=== PATIENT | female | born 2005 | race Caucasian/White ===

== ENCOUNTER 2024-03-14 10:27 | Outpatient (CLI) | payer OTHER, MEDICAID, SELFPAY ==
--- NOTE | ~2024-03-14 | US_ITS ---
EXAMINATION: US OB follow up DATE: 03/14/2024 11:40 INDICATION: Assess growth during third trimester of TECHNIQUE: Real-time ultrasound of the pelvis was performed. The interpreting radiologist was not pre sent for the study. COMPARISON: None. FINDINGS: There is a single living fetus in vertex presentation. The placenta is anterior and not low-lying. F etal heart rate is 132 beats per minute (bpm). The amniotic fluid index is 16.1 cm, which is normal. The following biometric data were obtained: BPD: 8.3 cm -> 33 weeks 4 days Head circumference: 30.2 cm -> 33 weeks 4 days Abdominal circumference: 27.5 cm -> 31 weeks 4 days Femur length: 6.0 cm -> 31 weeks 3 days These measurements are concordant. Head circumference to abdominal circumference ratio: 1.10 (normal range 0.96-1.12). Estimated weight: 1861 g (+/-) 279 g or 4 lbs. 2 oz. (+/-) 10 oz. IMPRESSION: 1. Single living fetus in vertex presentation with heart rate of 133 bpm. 2. Normal amniotic fluid index of 16.1 cm. 3. Estimated weight is 32nd percentile by Hadlock criteria when 05/08/2024 is used as the estimat ed date of delivery (SUSAN). Please correlate with clinical information or earlier ultrasounds for most accurate SUSAN. Reviewed, dictated and finalized at location B. SHIP CLERK IMPRESSION: 1. Single living fetus in vertex presentation with heart rate of 133 bpm. 2. Normal amniotic fluid index of 16.1 cm. 3. Estimated weight is 32nd percentile by Hadlock criteria when 05/08/2024 is used as the estimated date of delivery (SUSAN). Please correlate with clinical information or earlier ultrasounds for most accurate SUSAN.
== END 2024-03-14 10:28 | disposition home or self-care (01) ==
PROVIDERS: Visit Provider Obstetrics & Gynecology Gynecology
DX: Z36.2 Encounter for other antenatal screening follow-up (principal); Z3A.00 Weeks of gestation of pregnancy not specified
CPT/HCPCS: 76816

== ENCOUNTER 2024-04-03 05:07 | Observation (INO) | payer OTHER, MEDICAID, SELFPAY ==
[2024-04-03] VITALS (12 sets, daily range): BP systolic 85–123; BP diastolic 57–64; PULSE 72–84; O2SAT 97–100; BMI 35.4
--- NOTE | 2024-04-03 05:07 | PC.NURSE ---
Pt arrives to unit with back and abdominal pain.
--- NOTE | 2024-04-03 05:30 | OBADM ---
This patient, Tanya Ying, admitted to the OB room OB Post 117 for observation. Patient/family oriented to hospital policies and general routines including ID bracelet, bed and alarms, visiting hours, pain management, procedures, bathroom and other care routines, personal items, smoking policy, room service/diet, and visiting hours. Patient/Family are encouraged to report perceived risks to care and to ask questions if they do not understand what they are told or what they should do.
[2024-04-03 05:53] LABS: Add Urine Microscopic? YES; Appearance Urine Cloudy (Clear); Bacteria Urine Rare /hpf; Bilirubin Urine Negative (Negative); Blood Urine 2+ (Negative); Color Urine Yellow (Yellow); Glucose Urine UA Negative (Negative); Ketones Urine Negative (Negative); Leukocyte Esterase Ur Trace LEU/UL (Negative); Nitrate Urine Negative (Negative); Non Pathogenic Casts 0-2; Protein Urine 1+ mg/dL (Negative); RBC Urine 21-50 /hpf (0-2); Specific Grav Ur 1.019 (1.001-1.035); Squamous Epithelial Cell Urine Moderate /hpf (Few); Urobilinogen Urine 0.2 mg/dL (<2.0)
--- NOTE | 2024-04-03 06:11 | PC.NURSE ---
Called Maxx Garay CNM, update on pt, back and right abdominal pain 7 out of 10, labs, and tracing. Orders received to administer 10 mg Flexeril, perform SVE, position changes, and discharge pt if pain is relieved with instructions to keep next scheduled appointment and when to return to the unit.
[2024-04-03] MEDS: CYCLOBENZAPRINE HCL 10 MG TABLET PO (06:24)
--- NOTE | 2024-04-03 07:40 | PC.NURSE ---
Maxx Garay CNM notfied of patient's pain better after taking the flexeril and SVE. Okay to discharge
--- NOTE | 2024-04-15 08:05 | PM.OBTRLD ---
OB - Triage/Final Diagnosis Visit Information Date of evaluation: 04/03/24 Reason for evaluation: threatened labor (low back pain) Comments/Additional reasons for admission: I have assessed the risk for this patient, Tanya Ying, and determined that she would benefit from observation care. Evaluation Laboratory results: Laboratory Tests 04/03/24 05:24 Urine Color Yellow Urine Appearance Cloudy H Urine pH 6.0 Ur Specific [place] 1.019 Urine Protein 1+ H Urine Glucose (UA) Negative Urine Ketones Negative Ur Blood (Man) 2+ H Urine Nitrate Negative Urine Bilirubin Negative Urine Urobilinogen 0.2 Leukocyte Esterase Rfl Trace H Urine RBC 21-50 H Urine WBC 11-20 H Ur Squamous Epith Cells Moderate Urine Bacteria Rare Urine Casts 0-2 Comments: Pt evaluated on unit by RN. Plan of care discussed with CNM. FHTs reassuring. VSS. No evidence of active labor or ROM.
== END 2024-04-03 07:53 | disposition home or self-care (01) ==
PROVIDERS: Advanced Practice Midwife; Admitting Provider Obstetrics & Gynecology Gynecology; Visit Provider Obstetrics & Gynecology Gynecology
DX: O47.03 False labor before 37 completed weeks of gestation, third trimester (principal); Z3A.35 35 weeks gestation of pregnancy
CPT/HCPCS: 81001; 87086; A9270; G0378; G0379

== ENCOUNTER 2024-04-08 20:45 | Observation (INO) | payer OTHER, SELFPAY ==
--- NOTE | 2024-04-08 20:45 | PC.NURSE ---
Pt arrives to unit with abdominal and back pain.
[2024-04-08 21:05] VITALS: BP 117/68; PULSE 84
[2024-04-08 21:22] LABS: Add Urine Microscopic? YES; Appearance Urine Cloudy (Clear); Bacteria Urine None Seen /hpf; Bilirubin Urine Negative (Negative); Blood Urine 2+ (Negative); Color Urine Yellow (Yellow); Glucose Urine UA Negative (Negative); Ketones Urine Negative (Negative); Leukocyte Esterase Ur Negative LEU/UL (Negative); Mucus Urine Present /lpf; Need Manual Microscopic Reviewed; Nitrate Urine Negative (Negative); Protein Urine 3+ mg/dL (Negative); RBC Urine 51-100 /hpf (0-2); Specific Grav Ur 1.024 (1.001-1.035); Squamous Epithelial Cell Urine Moderate /hpf (Few); Urobilinogen Urine 0.2 mg/dL (<2.0); pH Urine 6.5 (5.0-9.0)
[2024-04-08 21:30] VITALS: BP 113/67; PULSE 82
--- NOTE | 2024-04-08 21:52 | PC.NURSE ---
Called Dr. Cadena, update on pt, abdominal and back pain, blood pressure, tracing, and labs. Orders received to discharge pt with instructions to hydrate, use a heating pad, keep next scheduled appointment, and when to return to the unit.
[2024-04-08 22:01] VITALS: BMI 35.5
--- NOTE | 2024-04-08 22:02 | OBADM ---
This patient, Tanya Ying, admitted to the OB room OB Post 113 for observation. Patient/family oriented to hospital policies and general routines including ID bracelet, bed and alarms, visiting hours, pain management, procedures, bathroom and other care routines, personal items, smoking policy, room service/diet, and visiting hours. Patient/Family are encouraged to report perceived risks to care and to ask questions if they do not understand what they are told or what they should do.
--- NOTE | 2024-04-08 22:16 | PC.NURSE ---
Pt discharged with instructions to hydrate, use a heating pad, keep next scheduled appointment, and when to return to the unit, pt verbalizes understanding.
--- NOTE | 2024-05-09 11:14 | P.PNOB_ITS ---
OB - Triage/Final Diagnosis Visit Information Comments/Additional reasons for admission: I have assessed the risk for this patient, Tanya Ying, and determined that she would benefit from observation care. Evaluation Laboratory results: Laboratory Tests 04/08/24 21:10 Urine Color Yellow Urine Appearance Cloudy H Urine pH 6.5 Ur Specific Murray 1.024 Urine Protein 3+ H Urine Glucose (UA) Negative Urine Ketones Negative Ur Blood (Man) 2+ H Urine Nitrate Negative Urine Bilirubin Negative Urine Urobilinogen 0.2 Add Ur Microanalysis Reviewed Leukocyte Esterase Rfl Negative Urine RBC 51-100 H Urine WBC 11-20 H Ur Squamous Epith Cells Moderate Urine Bacteria None seen Urine Casts 3-5 Urine Mucus Present Final Diagnosis (1) Decreased movement: Code(s): O36.8190 - Decreased movements, unspecified trimester, not applicable or unspecified Status: Acute
== END 2024-04-08 22:16 | disposition home or self-care (01) ==
PROVIDERS: Admitting Provider Obstetrics & Gynecology; Visit Provider Obstetrics & Gynecology
DX: O36.8130 Decreased fetal movements, third trimester, not applicable or unspecified (principal); Z3A.35 35 weeks gestation of pregnancy
CPT/HCPCS: 81001; 87086; G0378; G0379

== ENCOUNTER 2024-04-28 15:32 | Observation (INO) | payer OTHER, SELFPAY ==
--- NOTE | 2024-04-28 15:32 | OBADM ---
This patient, Tanya Ying, admitted to the OB room Labor/Delivery/Recovery 106 for observation. Patient/family oriented to hospital policies and general routines including ID bracelet, bed and alarms, visiting hours, pain management, procedures, bathroom and other care routines, personal items, smoking policy, room service/diet, and visiting hours. Patient/Family are encouraged to report perceived risks to care and to ask questions if they do not understand what they are told or what they should do.
[2024-04-28 18:35] VITALS: BMI 37.3
[2024-04-28 18:53] LABS: OBXCEM ROM Plus Negative (Negative)
--- NOTE | 2024-05-01 03:24 | PM.OBTRLD ---
OB - Triage/Final Diagnosis Visit Information Reason for evaluation: threatened labor Comments/Additional reasons for admission: I have assessed the risk for this patient, Tanya Ying, and determined that she would benefit from observation care. Evaluation Laboratory results: Laboratory Tests 04/28/24 16:18 Membranes Rupture Rom plus negative
== END 2024-04-28 18:42 | disposition home or self-care (01) ==
PROVIDERS: Admitting Provider Obstetrics & Gynecology Gynecology; Visit Provider Obstetrics & Gynecology Gynecology
DX: O47.1 False labor at or after 37 completed weeks of gestation (principal); Z3A.38 38 weeks gestation of pregnancy
CPT/HCPCS: 84112; G0378; G0379

== ENCOUNTER 2024-04-30 00:54 | Observation (INO) | payer OTHER, SELFPAY ==
[2024-04-30 03:00] VITALS: BP 117/77; PULSE 71
[2024-04-30 03:30] VITALS: BP 116/70; PULSE 73
--- NOTE | 2024-04-30 03:35 | PM.OBTRLD ---
OB - Triage/Final Diagnosis Visit Information Reason for evaluation: threatened labor Comments/Additional reasons for admission: I have assessed the risk for this patient, Tanya Ying, and determined that she would benefit from observation care. Evaluation Vital signs: Vital Signs - 24 hr 04/30/24 03:00 04/30/24 03:30 Pulse Rate 71 73 Blood Pressure 117/77 116/70
== END 2024-04-30 03:50 | disposition home or self-care (01) ==
PROVIDERS: Admitting Provider Obstetrics & Gynecology Gynecology; Visit Provider Obstetrics & Gynecology Gynecology
DX: O47.1 False labor at or after 37 completed weeks of gestation (principal); Z3A.38 38 weeks gestation of pregnancy
CPT/HCPCS: G0378; G0379

== ENCOUNTER 2024-05-01 07:13 | Inpatient (IN) | payer OTHER, MEDICAID, SELFPAY ==
[2024-05-01] VITALS (115 sets, daily range): BP systolic 79–132; BP diastolic 36–97; PULSE 57–128; RESP 20; TEMP 36.4–37.3; O2SAT 91–100; BMI 43.0
--- NOTE | 2024-05-01 07:51 | WPDOBADMIT ---
Obstetrics - Admit Note Admission Note: record reviewed. No pertinent additions to the history and/or any subsequent changes in the physical findings that are not consistent with the expected course of the were found. Additions to the history and/or subsequent changes in the physical findings follow. Patient returns with contractions but not in labor. Discussed 39 wks so could induce. Patient agreeable. Cervix 3-4/70/-2 AROM with meconium fluid. Will start pitocin. FHTs Cat I.
[2024-05-01 08:23] LABS: Basophils Percent Auto 0.3 % (0.2-1.2); Eosinophils Absolute Auto 0.1 K/mm3 (0-0.3); Eosinophils Percent Auto 1.2 % (0-4.4); Hematocrit 36.7 % (37.0-47.0); Hemoglobin 12.2 g/dL (12.0-15.0); Immature Granulocyte Absolute 0.06 K/mm3 (0.00-0.031); Immature Granulocyte Percent A 0.6 % (0-0.5); Lymphocytes Percent Auto 20.5 % (18.3-44.2); Mean Corpuscular HGB Conc 33.2 g/dl (32-36); Mean Corpuscular Hemoglobin 28.7 pg (26-34); Mean Corpuscular Volume 86.4 fl (80-100); Mean Platelet Volume 9.8 fl (7.4-10.4); Monocytes Absolute Auto 0.9 K/mm3 (0.1-0.6); Monocytes Percent Auto 8.9 % (2.6-8.5); Neutrophils Absolute Auto 6.7 K/mm3 (1.3-6.7); Neutrophils Percent Auto 68.5 % (45.5-73.1); Platelet Count Result 164 k/mm3 (150-375); Red Blood Count 4.25 M/mm3 (4.2-5.4); Red Cell Distribution Width 15.3 % (11.5-14.5); White Blood Count 9.8 K/mm3 (4.5-10.0)
[2024-05-01] MEDS: fentaNYL CITRATE INJ (*CRX) 100 MCG/2 ML VIAL IV PUSH (08:32)
[2024-05-01] MEDS: LACTATED RINGERS 1,000 ML 125 ML IV CONT ×2 (08:32→09:25)
[2024-05-01 08:42] LABS: Rapid Plasma Reagin Non-Reactive (NonReactive)
[2024-05-01 09:07] LABS: HIV 1/2 Ab P24 Ag Result Negative (Negative)
[2024-05-01] MEDS: ONDANSETRON INJ 4 MG/2 ML VIAL IV PUSH (12:48)
[2024-05-01] MEDS: OXYTOCIN 30 UNITS/NS 500 ML 30 UNITS/500 ML BAG IV CONT (15:53)
--- NOTE | 2024-05-01 18:56 | PM.OBPRVD ---
OB - Vaginal Delivery Note Procedure Delivery date: 05/01/24 Events: Other (39 wks for MIL) Induction method: AROM Delivery augmentation: Pitocin Delivery monitor: External FHT and External Uterine Route of delivery: Laceration Description: Periurethral (Bilateral deep) and Perineal - 2nd Degree Delivery repair: vicryl (3-0) Specimen: Yes (placenta) Quantitative Blood Loss (ml): 325 Anesthesia type: Epidural Disposition: Floor Complications: No immediate complications Narrative: not crying and limp so cord quickly cut and infant handed to nursery. Baby Date of : 05[birth year]/24 Gestational Age by Date: 39 Infant gender: Male Weight (pounds): 7 Weight (ounces): 1 presentation: vertex position: Right Occiput Anterior Placenta delivery description: Spontaneous Cord Vessel Description: Around Body (left shoulder) and Around Extremity (Bilateral feet) score one minute: 7 score five minutes: 9
--- NOTE | 2024-05-01 18:59 | P.DS_ITS ---
DS: Admitting Diagnosis Discharge Date 05/03/24 <Sim Cadena MD - Last Filed: 05/03/24 09:14> Admitting Diagnosis IUP 39 wks MIL <Daniela Marcial MD - Last Filed: 05/05/24 08:31> DS: Discharge Diagnosis Discharge Diagnosis (1) (normal spontaneous vaginal delivery): Code(s): O80 - Encounter for full-term uncomplicated delivery <Daniela Marcial MD - Last Filed: 05/05/24 08:31> Status: Acute <Daniela Marcial MD - Last Filed: 05/05/24 08:31> OB - DS: Summary OB Procedures : Ultrasound <Daniela Marcial MD - Last Filed: 05/05/24 08:31> OB Procedures Intrapartum: Spontaneous Vag Delivery <Daniela Marcial MD - Last Filed: 05/05/24 08:31> OB Procedures: : None <Daniela Marcial MD - Last Filed: 05/05/24 08:31> Peripartum Data Infant Delivery Method: Natural Vaginal <Daniela Marcial MD - Last Filed: 05/05/24 08:31> Laceration Description: Periurethral (Bilateral deep) and Perineal - 2nd Degree <Daniela Marcial MD - Last Filed: 05/05/24 08:31> complications: none <Daniela Marcial MD - Last Filed: 05/05/24 08:31> Status at Discharge Functional status at discharge: independent ambulation <Daniela Marcial MD - Last Filed: 05/05/24 08:31> Overall status at discharge: patient is progressing back to baseline <Daniela Marcial MD - Last Filed: 05/05/24 08:31> Time Spent with Patient Time attestation: Total time spent providing and/or coordinating discharge services: <Daniela Marcial MD - Last Filed: 05/05/24 08:31> DS: Data Data Completed and Pending Labs on day of discharge: Labs from last 24 hours 05/01/24 08:10 WBC 9.8 RBC 4.25 Hgb 12.2 Hct 36.7 L MCV 86.4 MCH 28.7 MCHC 33.2 RDW 15.3 H Plt Count 164 MPV 9.8 Immature Gran % (Auto) 0.6 H Neut % (Auto) 68.5 Lymph % (Auto) 20.5 [place] % (Auto) 8.9 H Eos % (Auto) 1.2 Baso % (Auto) 0.3 Lymph # (Auto) 2.00 [place] # (Auto) 0.9 H Eos # (Auto) 0.1 Baso # (Auto) 0.0 Abs Immat Gran (auto) 0.06 H Absolute Neuts (auto) 6.7 Absolute Nucleated RBC 0.000 Nucleated RBC % 0.0 RPR Non-reactive HIV 1&2 Ab/P24 Ag 4thGn Negative Blood Type A Positive Antibody Screen Negative <Daniela Marcial MD - Last Filed: 05/05/24 08:31> Discharge Plan Discharge Attending physician on discharge: Daniela Marcial <Daniela Marcial MD - Last Filed: 05/05/24 08:31> Daniela Marcial <Sim Cadena MD - Last Filed: 05/03/24 09:14> Discharging Clinician: Sim Cadena <Daniela Marcial MD - Last Filed: 05/05/24 08:31> Sim Cadena <Sim Cadena MD - Last Filed: 05/03/24 09:14> Anticipated Discharge Date/Time: 05/03/24 19:00 <Daniela Marcial MD - Last Filed: 05/05/24 08:31> Patient Disposition: Home, Self-Care <Daniela Marcial MD - Last Filed: 05/05/24 08:31> Activity: may shower and pelvic rest <Daniela Marcial MD - Last Filed: 05/05/24 08:31> may shower and pelvic rest <Sim Cadena MD - Last Filed: 05/03/24 09:14> Diet: regular <Daniela Marcial MD - Last Filed: 05/05/24 08:31> regular <Sim Cadena MD - Last Filed: 05/03/24 09:14> Discharge Instructions: Education: Mom and Baby Guide Given to: Mother Follow-Up: Call your delivering provider's office for an appointment to be seen in: 6 Weeks Mom and baby should come to the [facility] for the follow-up appointment. Appointment Date/Time: May 06, 2024 at 11:00 am What to expect at your follow-up visit: Blood Pressure Check Physical Assessment Call [phone] if you are unable to keep your appointment time. BREAST CARE: * Wear a snug supportive bra. * For engorgement discomfort: Breast Feeding: * Apply warm moist washcloths * Express milk as needed to relieve engorgement * Wear loose clothing Bottle Feeding: * May apply ice packs * For sore nipples: * Identify correct latch-on * Apply warm moist washcloths before and after nursing * Air dry nipples after nursing * May apply Lansinoh cream to nipples EPISIOTOMY/PERINEAL CARE: * Until bleeding stops, use your ellie bottle after urinating * Change your pad frequently throughout the day * You may take sitz baths several times a day (fill your bathtub with warm water and soak for 20 minutes.) Do NOT bathe in the water * No tub baths until seen by your physician - You may shower ACTIVITY: * Rest as much as possible. * Do not exercise or lift anything heavier than your baby (such as laundry or other children.) * Avoid stairs or driving as much as possible. * Do not put anything into the vagina. No douching, tampons, or sexual activity until seen by physician. NOTIFY PHYSICIAN IF YOU HAVE ANY QUESTIONS OR IF ANY OF THE FOLLOWING SYMPTOMS OCCUR: * If your episiotomy or incision becomes red, swollen, or more painful than what you have experienced in the hospital. * If your vaginal bleeding becomes foul smelling. * If your vaginal bleeding becomes more heavy than a period or if your bleeding changes from pink to bright red. However, you may pass an occasional walnut- sized clot once or twice for the first week . * If you experience a sharp, shooting pain in you calves. * If you discover a hard, reddened area on your breast or if you experience flu- like symptoms. DIET: * Eat regular, well-balanced meals. * Drink plenty of fluids daily. If , drink to thirst. Call or return if temperature above 100.4? F, increased abdominal pain, increased vaginal bleeding or any new problems. <Daniela Marcial MD - Last Filed: 05/05/24 08:31> Patient Language: Omani <Daniela Marcial MD - Last Filed: 05/05/24 08:31> Stand Alone Forms: General Discharge Information <Daniela Marcial MD - Last Filed: 05/05/24 08:31> Follow-up/Referrals: Daniela Marcial MD [Physician] - 6 Weeks <Daniela Marcial MD - Last Filed: 05/05/24 08:31> Discharge Medications: New ibuprofen 600 mg tablet 600 mg PO Q6H PRN (Reason: cramps) Qty: 30 0RF Continued sertraline 100 mg tablet 100 mg PO Q24H <Daniela Marcial MD - Last Filed: 05/05/24 08:31> Date of admission: 05/01/24 07:13 <Daniela Marcial MD - Last Filed: 05/05/24 08:31> Primary Care Provider: UNKNOWN,DOCTOR <Daniela Marcial MD - Last Filed: 05/05/24 08:31> Admitting Provider: Daniela Marcial <Daniela Marcial MD - Last Filed: 05/05/24 08:31> Attending physician on admission: Daniela Marcial <Daniela Marcial MD - Last Filed: 05/05/24 08:31> Condition: Stable <Daniela Marcial MD - Last Filed: 05/05/24 08:31>
--- NOTE | 2024-05-01 19:09 | LDADM ---
This patient, Tanya Ying, was admitted to Labor/Delivery/Recovery 106 on 05/01/24 at 07:13. Plans for labor, pain management and were discussed with patient. Patient/family oriented to hospital policies and general routines including ID bracelet, bed and alarms, visiting hours, pain management, procedures, bathroom and other care routines, personal items, smoking policy, room service/diet and guest tray routines, security routines, and visiting hours. Patient/Family are encouraged to report perceived risks to care and to ask questions if they do not understand what they are told or what they should do. See OBIX for further documentation.
[2024-05-01] MEDS: OXYTOCIN 30 UNITS/NS 500 ML 30 UNITS/500 ML BAG 125 UNITS IV CONT (19:11)
[2024-05-01] MEDS: WITCH HAZEL 40 PADS 1 PAD TOPICAL (20:50)
[2024-05-01] MEDS: BENZOCAINE 20% AER SPR (*SP) 56 GM CAN 1 SPRAY TOPICAL (20:50)
--- NOTE | 2024-05-01 21:06 | OBPPTRN ---
Patient transferred to post room #280 via wheelchair. Support person present. Oriented to unit, room, information board, rooming in, admission packet and security measures. Patient verbalizes understanding.
[2024-05-01] MEDS: ACETAMINOPHEN 325 MG TABLET 650 MG PO (22:40)
[2024-05-01] MEDS: IBUPROFEN 600 MG TABLET PO (22:40)
[2024-05-01] MEDS: DOCUSATE SODIUM 100 MG CAPSULE PO (22:48)
[2024-05-01] MEDS: SERTRALINE HCL 50 MG TABLET 100 MG PO (22:48)
[2024-05-02 03:00] VITALS: BP 103/68; PULSE 66; RESP 16; TEMP 36.8; O2SAT 98
[2024-05-02 04:32] LABS: Hemoglobin 9.9 g/dL (12.0-15.0)
[2024-05-02] MEDS: DOCUSATE SODIUM 100 MG CAPSULE PO ×2 (07:25→17:18)
[2024-05-02] MEDS: POLYSACCHARIDE IRON COMPLEX 150 MG CAPSULE PO (07:25)
[2024-05-02] MEDS: MULTIVIT/MIN/PREN/FOL AC/IRON TABLET 1 TAB PO (07:25)
[2024-05-02] MEDS: ACETAMINOPHEN 325 MG TABLET 650 MG PO ×3 (07:25→19:22)
--- NOTE | 2024-05-02 07:35 | PC.NURSE ---
Primary RN requested feeding assistance for pt. When speaking with mom, she states that baby hasn't eaten since 0030. Since we are at 7.5 hours, blood sugar checked. It was low at [address] Addison notified and gel and enfamil initiated. Mother not very happy about giving formula but consents if it is medically necessary. Baby unable to suck on bottle and spit out formula. Only 1ml given and mom wanted to stop the formula and try to breastfeed again. Educated that we still need to give formula per the policy. Mom is holding baby but he gives no feeding cues or effort to latch. Patient was given the admission packet. Reported to primary RN. She will try to get baby to take more formula.
--- NOTE | 2024-05-02 08:12 | WPDANLDPN2 ---
Anes-Prog Note L&D Date/Time: 05/02/24 08:12 Neuro status: Neuro function grossly intact. Vital Signs: Last Vital Signs Temp 36.8 C 05/02/24 03:00 Pulse 66 05/02/24 03:00 Resp 16 05/02/24 03:00 BP 103/68 05/02/24 03:00 Pulse Ox 98 05/02/24 03:00 O2 Del Method Room Air 05/01/24 08:00 Pain score (VAS): 0 I/O: Intake & Output 05/01/24 05/02/24 05/02/24 23:59 07:59 15:59 Output Total 625 Balance -625 Patient feedback: Patient satisfied with anesthetic care.
[2024-05-02 08:45] VITALS: BP 104/59; PULSE 75; RESP 16; TEMP 36.6; O2SAT 98
--- NOTE | 2024-05-02 11:05 | PC.NURSE ---
1105- Patient called out for assistance. She was holding baby in a football position and he was dressed in a sleeper. He was sleeping soundly. Suggested we move him to the crib and get him fully undressed to see if that will help him wake up. Mom states that she did that already and he didn't wake up. So she dressed him again and he woke up but fell back asleep. Since mom doesn't want to try this method of waking baby, encouraged her to place baby up and down vertically on her chest skin to skin. She did move him to her chest but didn't undress him and placed him over her shirt. Educated that she should try again in about 30 minutes when he may be in a more awake state. She also states he spit up a lot of the formula he took, but when she showed the wash cloth it only had a small spot of spit up on it. Reminded her that formula digests slower than breastmilk and spit up is normal as infants are adjusting to taking PO feeds. Reported to primary RN. 1200- Back to patient room to see if she was able to breastfeed. Mom states baby latched for 10 minutes and sucked off and on but not consistently the whole time. She was going to the bathroom and then says she will try to feed again. She said the doctor will be here soon to circ baby and that might wake him up . Discussed that infants are often sleepy as they recover from circumcision and the tylenol they get afterwards. If she could get in another good feeding before the circ it would be beneficial. Patient says she will try to feed again. Reported to primary RN.
--- NOTE | 2024-05-02 12:25 | P.PNOB_ITS ---
OB - PN: Subj Subjective Date/time seen: 05/02/24 12:25 Patient comments: no complaints and pain well controlled baby status: doing well OB - PN: Obj Data Labs 05/02/24 03:33 Labs: Laboratory Results - last 24 hr 05/02/24 03:33 Hgb 9.9 L Hct 31.0 L OB - PN A/P Plan day: 1 Plan: routine care and other (Declines control. Recommended at least condoms for 9 months to prevent interval being too close.) Time Spent With Patient Time: Total time spent is greater than 50% in coordination of care (as documented) at patient's floor/unit and/or counseling patient: Exam 2 : Bimanual exam- vagina & uterus: other (Uterus firm, nt @U)
[2024-05-02 12:32] VITALS: BP 102/60; PULSE 78; RESP 16; TEMP 36.6; O2SAT 98
[2024-05-02 19:20] VITALS: BP 121/86; PULSE 80; RESP 18; TEMP 36.7
[2024-05-02] MEDS: IBUPROFEN 600 MG TABLET PO (19:22)
[2024-05-02] MEDS: SERTRALINE HCL 50 MG TABLET 100 MG PO (20:51)
[2024-05-03] MEDS: ACETAMINOPHEN 325 MG TABLET 650 MG PO (04:00)
[2024-05-03] MEDS: IBUPROFEN 600 MG TABLET PO (04:00)
[2024-05-03 08:00] VITALS: BP 108/74; PULSE 68; RESP 16; TEMP 36.1
[2024-05-03] MEDS: MULTIVIT/MIN/PREN/FOL AC/IRON TABLET 1 TAB PO (08:07)
[2024-05-03] MEDS: DOCUSATE SODIUM 100 MG CAPSULE PO (08:07)
[2024-05-03] MEDS: POLYSACCHARIDE IRON COMPLEX 150 MG CAPSULE PO (08:07)
--- NOTE | 2024-05-03 09:12 | P.PNOB_ITS ---
OB - PN: Subj Subjective Date/time seen: 05/03/24 09:12 Narrative: Pain OK. Would like to go home. OB - PN: Obj Data Labs 05/02/24 03:33 OB - PN A/P Plan day: 1 Comments: A: PPD#2, doing well. P: Home to f/u 6 weeks. Exam 2 Psych: Other: AVSS ABD soft, nontender, fundus firm EXT nontender
[2024-05-03] MEDS: SIMETHICONE 80 MG TAB.CHEW PO (10:37)
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
[2024-05-06 10:47] VITALS: BP 117/72; PULSE 79; RESP 18; TEMP 36.5; O2SAT 100
--- OUTSIDE RECORDS SUMMARY | 2024-05-08 04:10 | XMS_ITS ---
Author Organization Unknown Address [address] [place] [phone] Phone Care Team Providers Care Siding Mechanic Name Role Phone CASH CARRION-BOBBY Attending Paul Casillas Primary Unavailable Immunization Immunization Date Status Additional Notes Code Code System MMR 08/08/2004 Completed 03 CVX MMR 11/19/2008 Completed 03 CVX Hep B, adolescent or pediatric 2003 Completed 08 CVX IPV 2003 Completed 10 CVX IPV 2003 Completed 10 CVX IPV 02/12/2004 Completed 10 CVX IPV 11/19/2008 Completed 10 CVX Hib, unspecified formulation 2003 Completed 17 CVX DTaP 2003 Completed 20 CVX DTaP 2003 Completed 20 CVX DTaP 02/12/2004 Completed 20 CVX DTaP 08/08/2004 Completed 20 CVX DTaP 11/19/2008 Completed 20 CVX varicella 08/08/2004 Completed 21 CVX varicella 11/19/2008 Completed 21 CVX Hib-Hep B 2003 Completed 51 CVX Hib-Hep B 08/08/2004 Completed 51 CVX HPV, quadrivalent 08/13/2014 Completed 62 C VX Hep A, ped/adol, 2 dose 08/13/2014 Completed 83 CVX pneumococcal conjugate PCV 7 2003 Completed 100 CVX pneumococcal conjugate PCV 7 2003 Completed 100 CVX pneumococcal conjugate PCV 7 02/12/2004 Completed 100 CVX pneumococcal conjugate PCV 7 08/08/2004 Completed 100 CVX meningococcal MCV4P 08/13/2014 Completed 114 CVX meningococcal MCV4P 11/26/2020 Completed 114 CVX Tdap 08/13/2014 Completed 115 CVX Influenza, split virus, quadrivalent, preservative 01/16/2019 Completed 158 C VX COVID-19, mRNA, LNP-S, PF, 3 0 mcg/0.3 mL dose 11/26/2020 Completed 208 CVX COVID-19, mRNA, LNP-S, PF, 3 0 mcg/0.3 mL dose 12/22/2020 Completed 208 CVX COVID-19, mRNA, LNP-S, PF, 3 0 mcg/0.3 mL dose, evy-sucrose 09/06/2021 Completed 217 CVX Results BETA HCG-QUANT - Collect Willy e/Time: 09/02/2023 12:45 [facility] ID: [id number] [place], [place], [id number] LOINC: 18284-5 Test Value Unit Reference Range Code Code System Flag BETA HCG-QUANT 858.53 mIU/mL L=0.00 H=6.00 37087-0 LOINC H Social History Type Status Start Date End Date Code Code Syst em Smoking History Never smoker (Never Smoked) 704763408 SNOMED CT Sex Female Medications Medication Start Date End Date Route Frequency Dose Code Code System Medication Instructions Home Meds Dicyclomine HCl 10MG Oral Capsule 03/01/2021 Unknown ORAL THREE TIMES A DAY 10 MILLIGRAMS 018551 RxNorm TAKE 10 MILLIGRAMS ORAL THREE TIMES A DAY FLUoxetine HCl 20MG Oral Tablet 03/01/2021 Unknown ORAL ONCE A DAY 20 MILLIGRAMS 525856 RxNorm TAKE 20 MILLIGRAMS ORAL ONCE A DAY Adia 3MG-0.02MG Oral Tablet 03/01/2021 Unknown ORAL DIRECTED 1 unit(s) 8547928 RxNorm TAKE 1 EACH ORAL DIRECTED Assessment You had the following problems:OTHER GENERAL SYMPTOMS AND SIGNS Hospital Discharge Instructions Should you have any questions prior to discharge, please contact a member of your healthcare team. If you have left the hospital and have any questions, please contact your primary care physician. Reason For Referral No Data Found Problems Problem Start Date Resolved Date Status Code Code System OTHER GENERAL SYMPTOMS AND SIGNS active 899208354 [facility] Allergies and Adverse Reactions Allergy Substance Reaction Severity Start Date Concern Status Co de Code System No Known Drug Allergies Active 248183957 [facility] Plan of Treatment No Data Found Encounters Encounter Diagnosis Start Date Code Code Sys tem care for patient w ith recurrent loss, first trimester 09/02/2023 SNOMED-CT Personal Care Team Section Performer Name Performer Role Active Date Inactive POLI Maria PCP - Primary care physician 2021-02-01
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
--- OUTSIDE RECORDS SUMMARY | 2024-05-08 04:10 | XMS_ITS ---
Author Organization Unknown Address [address] [place] [phone] Phone Care Team Providers Care Cost Controller Name Role Phone CASH CARRION-BOBBY Attending Paul [...] Results BETA HCG-QUANT - Collect Willy e/Time: 08/31/2023 13:03 [facility] ID: [id number] [address] [place], [place], [id number] LOINC: 38955-0 Test Value Unit Reference Range Code Code System Flag BETA HCG-QUANT 398.00 mIU/mL L=0.00 H=6.00 21796-1 LOINC H Social History Type Status Start Date End Date Code Code Syst em Smoking History Never smoker (Never Smoked) [id number] SNOMED CT Sex Female Medications Medication Start Date End Date Route Frequency Dose Code Code System Medication Instructions Home Meds Dicyclomine HCl 10MG Oral Capsule 03/01/2021 Unknown ORAL THREE TIMES A DAY 10 MILLIGRAMS 346983 RxNorm TAKE 10 MILLIGRAMS ORAL THREE TIMES A DAY FLUoxetine HCl 20MG Oral Tablet 03/01/2021 Unknown ORAL ONCE A DAY 20 MILLIGRAMS 847503 RxNorm TAKE 20 MILLIGRAMS ORAL ONCE A DAY Adia 3MG-0.02MG Oral Tablet 03/01/2021 Unknown ORAL DIRECTED 1 unit(s) 1974697 RxNorm TAKE 1 EACH ORAL DIRECTED Assessment [...] System OTHER GENERAL SYMPTOMS AND SIGNS active [id number] SNOMED-CT Allergies and Adverse Reactions Allergy Substance Reaction Severity Start Date Concern Status Co de Code System No Known Drug Allergies Active [id number] SNOMED-CT Plan of Treatment No Data Found Encounters Encounter Diagnosis Start Date Code Code Sys tem care for patient w ith recurrent loss, first trimester 08/31/2023 SNOMED-CT Personal Care Team Section Performer Name Performer Role Active Date Inactive Da POLI Parker PCP - Primary care physician 2021-02-01
--- OUTSIDE RECORDS SUMMARY | 2024-05-08 04:11 | XMS_ITS | Encounter Summary ---
Author Organization [facility] Address [address] [place] [address] Phone Care Team Providers Care Coding Director Name Role Phone No, Physician Primary Care Provider [phone] Reason for Visit * Diagnostic Imaging (Routine) - Closed Specialty Diagnoses / Procedures Referred By Conteliel t Referred To Contact Diagnoses Encounter for anatomic survey Procedures US Ob Detail Anatomy Single Or First Gestation Daniela Marcial MD 2022 [address] [address] Phone: tel: fax: [facility] (All Locations) Referral ID Status Reason Start Date Expiration Date Visits Re quested Visits Authorized [id number] Closed 11/21/2023 12/20/2024 1 1 Encounter Details Date Type Department Care Team (Latest Contact Info) Description 11/23/2023 9:15 AM CDT Ancillary Procedure [facility] Obstetrics and Gynecology [address] [address] Encounter for anatomic survey Social History Tobacco Use Types Packs/Day Years Used Date Smoking Tobacco: Former Cigarettes Smokeless Tobacco: Never Comments Yes Sex and Gender Information Value Date Recorded Sex Assigned at Not on file Legal Sex Female 3:04 PM CDT Gender Identity Not on file Sexual Orientation Not on file documented as of this encounter Plan of Treatment Not on file documented as of this encounter Procedures Procedure Name Priority Date/Time Associated Diagnosis Comments US OB DETAIL ANATOMY SINGLE OR FIRST GESTATION Schedule Routine, Read Routine (OP Routine) 11/23/2023 8:42 AM CDT Encounter for anatomic survey documented in this encounter Results * US Ob Detail Anatomy Single Or First Gestation (11/23/2023 8:42 AM CDT) Fetus# Fetus1 VIEWPOINT Estimated Weight 157 g&grams VIEWPOINT Placenta Details anterior, Previa-no, no placental masses VIEWPOINT Presentation Vertex VIEWPOINT Anatomical Region Laterality Modality Body N/A Ultrasound 11/23/2023 8:48 AM CDT Impressions 11/23/2023 10:05 AM CDT IUP at 16w 1d ??for evaluation of growth assessment. ??Vertex presentation. ??The interval growth has been appropriate. The EFW plots at the 61%. The amniotic fluid volume is normal. Limited anatomy as above grossly normal. ?Transvaginal cervical length is within normal limits. Narrative Procedure Note Lurdes Gibson MD - 11/23/2023 IMPRESSION: IUP at 16w 1d for evaluation of growth assessment. Vertexpresentation. The interval growth has been appropriate. The EFWplots at the 61%. The amniotic fluid volume is normal. Limited anatomy asabove grossly normal. Transvaginal cervical length is within normallimits. us Daniela Marcial MD IMG OB US PROCEDURES Fin al Result documented in this encounter Visit Diagnoses Diagnosis Encounter for anatomic survey documented in this encounter Care Teams Coding Director Relationship Specialty Start Date End Date No, Physician PCP - General 11/22/23 documented as of this encounter
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
--- OUTSIDE RECORDS SUMMARY | 2024-05-08 04:11 | XMS_ITS | Encounter Summary ---
Author Organization [facility] Address [address] [place] [address] Phone Care Team Providers Care Driver Trainee Name Role Phone No, Physician Primary Care Provider [phone] Encounter Details Date Type Department Care Team (Late st Contact Info) Description 11/22/2023 Telephone [facility] Obstetrics and Gynecology [address] [place] [address] Jenny Lugo Social History Tobacco Use Types Packs/Day Years Used Date Smoking Tobacco: Never Assessed Comments Yes Sex and Gender Information Value Date Recorded Sex Assigned at Not on file Legal Sex Female 3:04 PM CDT Gender Identity Not on file Sexual Orientation Not on file documented as of this encounter Miscellaneous Notes * Telephone Encounter - Jenny Lugo - 11/22/2023 9:28 AM CDT 11/21 Patient is now scheduled, appointment details are below. Patient will be out of town during 2nd week of recommended timeframe. Patient declined GC stating she does not care about it nor wants it and only want to check on her baby She is aware that this appointment is [facility] and wants to drive there because it is sooner that 12/04 that was offered 11/22 US 9:15am at [facility] 11/22 OBC 10:15am at [facility] via GARCIA Video BT Chart reviewed for referral. Please schedule for OBC with GC and anatomy within 2 weeks. SUSAN 05/08 DX: NIPT no results x2 Itzel documented in this encounter Plan of Treatment Not on file documented as of this encounter Visit Diagnoses Not on filedocumented in this encounter Care Teams Driver Trainee Relationship Specialty Start Date End Date No, Physician PCP - General 11/22/23 documented as of this encounter
--- OUTSIDE RECORDS SUMMARY | 2024-05-08 04:11 | XMS_ITS | Encounter Summary ---
Author Organization [facility] Address [address] [place] [address] Care Team Providers Care Emergency Management System Director Name Role Phone Unavailable Primary Care Provider Unavailabl e Reason for Referral * Eval and Treat (Emergency) - Closed Specialty Diagnoses / Procedures Referred By Gabe t Referred To Contact Perinatology Diagnoses Abnormal chromosomal and genetic finding on screening mother Procedures OR OFFICE/OUTPATIENT ESTABLISHED MOD MDM 30 MIN OR OFFICE/OUTPATIENT NEW MODERATE MDM 45 MINUTES Daniela Marcial MD [address] [place] [address] [facility] Maternal And Medicine [place] [address] [facility] [place] [address] Referral ID Status Reason Start Date Expiration Date Visits Requested Visits Authorized [id number] Closed Performing Department to Schedule 11/19/2023 11/18/2024 1 1 Encounter Details Date Type Department Care Team (Late st Contact Info) Description 11/19/2023 Orders Only [facility] Maternal and Ground [address] [place] [address] Daniela Marcial MD [address] [place] [address] Abnormal chromosomal and genetic finding on screening mother (Primary Dx) Social History Tobacco Use Types Packs/Day Years Used Date Smoking Tobacco: Never Assessed Adolescent Education Answer Date Record ed Getting School Help Needed Not on file 11/18 Comments Yes Sex and Gender Information Value Date Recorded Sex Assigned at Not on file Gender Identity Not on file Sexual Orientation Not on file documented as of this encounter Plan of Treatment Scheduled Referrals Name Type Priority Associated Diagnoses Orde r Schedule AMB REFERRAL TO PERINATOLOGY Outpatient Referral Routine Abnormal chromosomal and genetic finding on screening mother Ordered: 11/19/2023 documented as of this encounter Visit Diagnoses Diagnosis Abnormal chromosomal and genetic finding on screening mother- Primary Abnormal findings on screening documented in this encounter
--- OUTSIDE RECORDS SUMMARY | 2024-05-08 04:11 | XMS_ITS | Encounter Summary ---
Author Organization [facility] Address [address] [place] [address] Phone Care Team Providers Care Painter Foreman Name Role Phone No, Physician Primary Care Provider [phone] Encounter Details Date Type Department Care Team (Late st Contact Info) Description 11/22/2023 Telephone [facility] Obstetrics and Gynecology [address] [address] Xuan Jacobson CMA Social History Tobacco Use Types Packs/Day Years Used Date Smoking Tobacco: Never Assessed Comments Yes Sex and Gender Information Value Date Recorded Sex Assigned at Not on file Legal Sex Female 3:04 PM CDT Gender Identity Not on file Sexual Orientation Not on file documented as of this encounter Miscellaneous Notes * Telephone Encounter - Xuan Jacobson CMA - 11/22/2023 2:15 PM CDT Spoke to patient and confirmed appointment for 11/23/2023. documented in this encounter Plan of Treatment Not on file documented as of this encounter Visit Diagnoses Not on filedocumented in this encounter Care Teams Painter Foreman Relationship Specialty Start Date End Date No, Physician PCP - General 11/22/23 documented as of this encounter
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
--- OUTSIDE RECORDS SUMMARY | 2024-05-08 04:11 | XMS_ITS ---
Author Organization Unknown Address [address] [place] [phone] Phone Care Team Providers Care Stage Technician Name Role Phone CORKY SMALLS Attending Unavailable [...] dose, evy-sucrose 09/06/2021 Completed 217 CVX Results BB RETYPE ABO AND RH TYPE - Collect Date/Time: 10/22/2023 08:30 [facility] ID: [id number] [address] [place] [address], [id number] LOINC: 09696-0 Test Value Unit Reference Range Code Code System Flag ABO TYPE A 883-9 LOINC RH TYPE POSITIVE BETA HCG-QUANT - Collect Willy e/Time: 10/22/2023 08:13 [facility] ID: [id number] [address] [place] [address], [id number] LOINC: 15359-0 Test Value Unit Reference Range Code Code System Flag BETA HCG-QUANT 76599.00 mIU/mL L=0.00 H=6.00 95018-5 LOINC H CBC W/ DIFF - Collect Date/T jasmine: 10/22/2023 08:13 [facility] ID: [id number] [address] [place] [address], [id number] LOINC: 07337-8 Test Value Unit Reference Range Code Code System Flag WBC 10.9 10^3uL L=4.8 H=10.8 H RBC 3.98 10^6uL L=4.20 H=5.40 L HEMOGLOBIN 12.2 g/dL L=12.0 H=16.0 718-7 LOINC HEMATOCRIT 34.9 VOL% L=37.0 H=47.0 4544-3 LOINC L MCV 87.7 fL L=81.0 H=99.0 MCH 30.7 pg L=27.0 H=32.0 MCHC 35.0 g/dL L=32.0 H=36.0 PLATELETS 209 10^3uL L=100 H=400 62991-4 LOINC RDW 12.6 % L=11.7 H=15.5 %GRAN 80.7 % L=40.0 H=70.0 33029-6 LOINC H %LYMPH 13.3 % L=20.0 H=45.0 736-9 LOINC L %MONO 5.0 % L=2.0 H=10.0 30932-8 LOINC %EOS 0.3 % L=0.0 H=6.0 713-8 LOINC %BASO 0.3 % L=0.0 H=3.0 706-2 LOINC #NEUT 8.8 10^3uL L=1.9 H=7.6 00011-5 LOINC H #LYMPH 1.5 10^3uL L=0.9 H=4.9 64187-3 LOINC #MONO 0.5 10^3uL L=0.1 H=0.9 61739-3 LOINC #EOS 0.0 10^3uL L=0.0 H=0.6 712-0 LOINC #BASO 0.03 10^3uL L=0.00 H=0.10 91107-3 LOINC #IM GRANS 0.0 10^3uL L=0.0 H=7.0 04063-1 LOINC %IM GRANS 0.4 % L=0.0 H=5.0 54075-2 LOINC %NRB 0.0 L=0.0 H=0.2 68584-6 LOINC #NRB 0.000 L=0.000 H=0.012 60572-8 LOINC MANUAL DIFF NOT INDICATED RBC MORPH NOT INDICATED COMPREHENSIVE METABOLIC PANE L - Collect Date/Time: 10/22/2023 08:13 [facility] ID: [id number] [address] [place], [place], [id number] LOINC: 94281-1 Test Value Unit Reference Range Code Code System Flag FASTING UNKNOWN BUN 7 mg/dL L=7 H=20 3094-0 LOINC CREATININE 0.70 mg/dL L=0.52 H=1.04 2160-0 LOINC GLUCOSE 97 mg/dL L=74 H=106 2345-7 LOINC SODIUM 135 mmol/L L=132 H=144 2951-2 LOINC POTASSIUM 3.6 mmol/L L=3.5 H=5.1 2823-3 LOINC CHLORIDE 108 mmol/L L=98 H=107 2075-0 LOINC H CO2 22.0 mmol/L L=22.0 H=30.0 2028-9 LOINC ANION GAP 9 L=10 H=20 09819-1 LOINC L OSMOLALITY 278 mOs/kG L=280 H=296 48764-3 LOINC L BUN/CREAT 10.0 3097-3 LOINC CALCIUM 9.3 mg/dL L=8.3 H=10.5 37549-0 LOINC AST 22 U/L L=15 H=46 1920-8 LOINC ALT 16 U/L L=9 H=72 1742-6 LOINC ALKALINE PHOS 73 U/L L=38 H=126 6768-6 LOINC TOTAL BILI 0.4 mg/dL L=0.2 H=1.3 1975-2 LOINC ALBUMIN 3.9 G/dL L=3.5 H=5.0 1751-7 LOINC TOTAL PROTEIN 7.4 g/L L=6.3 H=8.2 2885-2 LOINC A/G RATIO 1.1 72191-4 LOINC AGE 18 79216-9 LOINC eGFR NON-AFR 113 ml/min eGFR AFR AMER 137 ml/min BB ABO AND RH TYPE - Collect Date/Time: 10/22/2023 08:13 [facility] ID: [id number] [address] [place], [place], [phone] LOINC: 80121-1 Test Value Unit Reference Range Code Code System Flag ABO TYPE A 883-9 LOINC RH TYPE POSITIVE US OB <14WKS - Completed: 08:48 LOINC: EXAM DESCRIPTION: US OB <14WKS REASON FOR STUDY: Intrauterine . Beta-hCG: Not available TECHNIQUE: Transabdominal images acquired of the pelvis. COMPARISON: None available FINDINGS: Clinical gestational age: Not available Clinical estimated Due Date: Not applicable Intrauterine gestational sac: Present Yolk sac: Present Subchorionic bleed: No Placenta: Not identified Manley-rump length: 6.1 cm heart rate: 143 bpm Gestational age by this ultrasound: 12 weeks 3 days SUSAN by this ultrasound: 05/02/2024 Uterus: The uterus is anteverted, measuring 11.1 x 8.2 x 8.2 cm. Right Ovary/Adnexa: The right ovary measures 2.8 x 1.9 x 3.5 cm. Within normal limits. Left Ovary/Adnexa: The left ovary measures 3.2 x 2.1 x 2.8 cm. Within normal limits. Free Fluid: None. Other Findings: None. IMPRESSION: Single live intrauterine . THIS IS AN ELECTRONICALLY VERIFIED FINAL REPORT 10/22/2023 8:57 AM - Electronically signed by Vishnu Solomon M.D. KN: CLAIR Report ID: [id number] Reading Location: [id number] Social History Type Status Start Date End Date Code Code Syst em Smoking History Never smoker (Never Smoked) 155004613 SNOMED CT Sex Female Medications Medication Start Date End Date Route Frequency Dose Code Code System Medication Instructions Home Meds Dicyclomine HCl 10MG Oral Capsule 03/01/2021 Unknown ORAL THREE TIMES A DAY 10 MILLIGRAMS 019630 RxNorm TAKE 10 MILLIGRAMS ORAL THREE TIMES A DAY FLUoxetine HCl 20MG Oral Tablet 03/01/2021 Unknown ORAL ONCE A DAY 20 MILLIGRAMS 206823 RxNorm TAKE 20 MILLIGRAMS ORAL ONCE A DAY Adia 3MG-0.02MG Oral Tablet 03/01/2021 Unknown ORAL DIRECTED 1 unit(s) 9470773 RxNorm TAKE 1 EACH ORAL DIRECTED Assessment [...] System OTHER GENERAL SYMPTOMS AND SIGNS active 399446988 SNOMED-CT Allergies and Adverse Reactions Allergy Substance Reaction Severity Start Date Concern Status Co de Code System No Known Drug Allergies Active 034658213 SNOMED-CT Plan of Treatment No Data Found Encounters Encounter Diagnosis Start Date Code Code Sys tem Spotting complicating , first trimester 10/21 SNOMED-CT Personal Care Team Section Performer Name Performer Role Active Date Inactive POLI Maria PCP - Primary care physician 2021-02-01 Imaging Narrative Notes
--- OUTSIDE RECORDS SUMMARY | 2024-05-08 04:11 | XMS_ITS | Encounter Summary ---
Author Organization Address [address] [place] [address] Care Team Providers Care Promotion Specialist Name Role Phone Unavailable Primary Care Provider Unavailabl e Reason for Referral * Eval and Treat (Routine) - Authorized Specialty Diagnoses / Procedures Referred By Gabe reed Referred To Contact Genetics Diagnoses Abnormal chromosomal and genetic finding on screening mother Daniela Marcial MD [address] [place] [address] [facility] Genetic Counseling [address] [facility] [address] [place] [address] Referral ID Status Reason Start Date Expiration Date Visits Requested Visits Authorized [id number] Authorized Performing Department to Schedule 11/19/2023 11/19/2024 1 1 Encounter Details Date Type Department Care Team (Late st Contact Info) Description 11/19/2023 Orders Only [facility] Maternal and Ground Floor [address] [place] [address] [place] [address] Daniela Marcial MD [address] [place] [address] Abnormal chromosomal and genetic finding [...] Diagnoses Orde r Schedule AMB REFERRAL TO GENETIC COUNSELING Outpatient Referral Routine Abnormal chromosomal and genetic finding on screening mother Ordered: 11/19/2023 documented as of this encounter Visit Diagnoses Diagnosis Abnormal chromosomal and genetic finding on screening mother- Primary Abnormal findings on screening documented in this encounter
--- OUTSIDE RECORDS SUMMARY | 2024-05-08 04:11 | XMS_ITS | Encounter Summary ---
Author Organization [facility] Address [address] [place] [address] Phone Care Team Providers Care Call Center Nurse Name Role Phone No, Physician Primary Care Provider [phone] Encounter Details Date Type Department Care Team (Late st Contact Info) Description 11/22/2023 Telephone [facility] Obstetrics and Gynecology [address] [place] [address] Jenny Lugo Social History Tobacco Use Types Packs/Day Years Used Date Smoking Tobacco: Never Assessed Comments Yes Sex and Gender Information Value Date Recorded Sex Assigned at Not on file Legal Sex Female 3:04 PM CDT Gender Identity Not on file Sexual Orientation Not on file documented as of this encounter Miscellaneous Notes * Telephone Encounter - Jenny Lugo - 11/22/2023 10:47 AM CDT ERROR documented in this encounter Plan of Treatment Not on file documented as of this encounter Visit Diagnoses Not on filedocumented in this encounter Care Teams Call Center Nurse Relationship Specialty Start Date End Date No, Physician PCP - General 11/22/23 documented as of this encounter
--- OUTSIDE RECORDS SUMMARY | 2024-05-08 04:11 | XMS_ITS | Referral Summary ---
Author Organization [facility] Address [address] [place] [address] Care Team Providers Care Tieing Machine Operator Name Role Phone No, Physician Primary Care Provider Allergies No known active allergies Medications sertraline (ZOLOFT) 100 mg tablet Take 1 tablet (100 mg total) by mouth daily Active vit 49-yryp-ydoen-dh a 27mg iron- 800 mcg-250 mg capsule Take by mouth Active Active Problems Problem Noted Date Diagnosed Date Abnormal genetic test during Anxiety disorder affecting , antepartum 11/22/2023 Bipolar disease during pregn samia in second trimester ([facility]) 11/22/2023 Marijuana use during 11/22/2023 Supervision of high-risk , second trime ster 11/22/2023 Overview (11/22/2023): SEROLOGIES NEEDED requested 11/21 [] Co-management vs. [] Full [facility] Care; [] Red Team [] Blue Team Referring Provider: Daniela Marcial [phone] [] or Medicare Insurance [x] Dating Criteria: [...] [] MOC: [] Method of feeding: [] Sales Support Advisor: [] PP Depression Discussed: Comments Yes Social History Tobacco Use Types Packs/Day Years Used Date Smoking Tobacco: Former Cigarettes Smokeless Tobacco: Never Tobacco Cessation:Counseling Given: Not Answered Comments Yes Sex and Gender Information Value Date Recorded Sex Assigned at Not on file Legal Sex Female 3:04 PM CDT Gender Identity Not on file Sexual Orientation Not on file Last Filed Vital Signs Vital Sign Reading [...] 11/23/2023 9:34 AM CDT Plan of Treatment Not on file Insurance IDPA [facility] Care Teams Tieing Machine Operator Relationship Specialty Start Date End Date No, Physician PCP - General 11/22/23
--- OUTSIDE RECORDS SUMMARY | 2024-05-08 04:11 | XMS_ITS | Encounter Summary ---
Author Organization [facility] Address [address] [place] [address] Phone Care Team Providers Care Certified Master Locksmith Name Role Phone No, Physician Primary Care Provider [phone] Reason for Visit * Diagnostic Imaging (Routine) - Closed Specialty Diagnoses / Procedures Referred By Contac t Referred To Contact Diagnoses Supervision of high risk elderly multigravida in second trimester Procedures US Ob Detail Anatomy Single Or First Gestation Daniela Marcial MD [address] [address] Phone: tel: fax: [facility] (All Locations) Referral ID Status Reason Start Date Expiration Date Visits Re quested Visits Authorized [id number] Closed 11/23/2023 12/22/2024 1 1 Encounter Details Date Type Department Care Team (Latest Contact Info) Description 12/21/2023 9:45 AM CDT Ancillary Procedure [facility] Obstetrics and Gynecology [address] [place] [phone] Supervision of high risk elderly multigravida in second trimester Social History Tobacco Use Types Packs/Day Years [...] GESTATION Schedule Routine, Read Routine (OP Routine) 12/21/2023 9:41 AM CDT Supervision of high risk elderly multigravida in second trimester documented in this encounter Results * US [...] this encounter Visit Diagnoses Diagnosis Supervision of high risk elderly multigravida in second trimester documented in this encounter Care Teams Certified Master Locksmith Relationship Specialty Start Date End Date No, Physician PCP - General 11/22/23 documented as of this encounter
--- OUTSIDE RECORDS SUMMARY | 2024-05-08 04:11 | XMS_ITS | Clinical Summary ---
Author Organization [facility] Address [address] [place] [address] Phone Care Team Providers Care Geothermal Powerplant Mechanic Helper Name Role Phone Unavailable Primary Care Provider Unavailabl e Social History Tobacco Use Types Packs/Day Years Used Date Smoking Tobacco: Never Assessed Adolescent Education Answer Date Record ed Getting School Help Needed Not on file 11/18 Comments Yes Sex and Gender Information Value Date Recorded Sex Assigned at Not on file Gender Identity Not on file Sexual Orientation Not on file Plan of Treatment Health Maintenance Due Date Last Done Comments CHLAMYDIA SCREENING (ANNUAL) 11-24 YEARS 07/29/2014 HPV VACCINES (1 - 3-dose series) 07/29/2018 DTAP/TDAP/TD VACCINES (1 - Tdap) 07/29/2022 HEPATITIS B VACCINES (1 of 3 - 19+ 3-dose series) 07/29/2022 INFLUENZA VACCINE (#1) 2023 RSV VACCINE (60+ or ) (1 - 1-dose 75+ series) 07/29/2078 PNEUMOCOCCAL VACCINE 0-64 YEARS Aged Out No longer eligible based on patient's age to complete this topic
--- OUTSIDE RECORDS SUMMARY | 2024-05-08 04:56 | XMS_ITS ---
Author Organization Unknown Address [address] [place] [phone] Phone Care Team Providers Care Travel Registered Nurse Oncology Name Role Phone CORKY SMALLS Attending Unavailable [...] URINE - Colle ct Date/Time: 07/22/2023 09:30 [facility] ID: [id number] [address] [place], [place], [phone] LOINC: Test Value Unit Reference Range Code [...] Lucian Conley M.D. MJ: CHRISTINE Report ID: [id number] Reading Location: [place] [address] Social History Type Status Start Date End Date Code Code Syst em Smoking History Never smoker (Never Smoked) 128250950 SNOMED CT Sex Female Medications Medication Start Date End Date Route Frequency Dose Code Code System Medication Instructions Home Meds Dicyclomine HCl 10MG Oral Capsule 03/01/2021 Unknown ORAL THREE TIMES A DAY 10 MILLIGRAMS 217768 RxNorm TAKE 10 MILLIGRAMS ORAL THREE TIMES A DAY FLUoxetine HCl 20MG Oral Tablet 03/01/2021 Unknown ORAL ONCE A DAY 20 MILLIGRAMS 353103 RxNorm TAKE 20 MILLIGRAMS ORAL ONCE A DAY Adia 3MG-0.02MG Oral Tablet 03/01/2021 Unknown ORAL DIRECTED 1 unit(s) 0600024 RxNorm TAKE 1 EACH ORAL DIRECTED Assessment [...] System OTHER GENERAL SYMPTOMS AND SIGNS active 057910510 SNOMED-CT Allergies and Adverse Reactions Allergy Substance Reaction Severity Start Date Concern Status Co de Code System No Known Drug Allergies Active 014264983 SNOMED-CT Plan of Treatment No Data Found Encounters Encounter Diagnosis Start Date Code Code Sys tem Contusion of lower back and pelvis, initial encounter 07/22/2023 SNOMED-CT Personal Care Team Section Performer Name Performer Role Active Date Inactive POLI Maria PCP - Primary care physician 2021-02-01 Imaging Narrative Notes
--- OUTSIDE RECORDS SUMMARY | 2024-05-08 04:56 | XMS_ITS ---
Author Organization Unknown Address [address] [place] [phone] Phone Care Team Providers Care Sas Statistical Programmer Name Role Phone CASH CARRION-BOBBY Attending Paul [...] HCG-QUANT - Collect Willy e/Time: 09/02/2023 12:45 [facility] ID: [id number] [address] [place], [place], [id number] LOINC: 85074-8 Test Value Unit Reference Range Code Code System Flag BETA HCG-QUANT 858.53 mIU/mL L=0.00 H=6.00 01866-4 LOINC H Social History Type Status Start Date End Date Code Code Syst em Smoking History Never smoker (Never Smoked) 788101318 SNOMED CT Sex Female Medications Medication Start Date End Date Route Frequency Dose Code Code System Medication Instructions Home Meds Dicyclomine HCl 10MG Oral Capsule 03/01/2021 Unknown ORAL THREE TIMES A DAY 10 MILLIGRAMS 301008 RxNorm TAKE 10 MILLIGRAMS ORAL THREE TIMES A DAY FLUoxetine HCl 20MG Oral Tablet 03/01/2021 Unknown ORAL ONCE A DAY 20 MILLIGRAMS 650368 RxNorm TAKE 20 MILLIGRAMS ORAL ONCE A DAY Adia 3MG-0.02MG Oral Tablet 03/01/2021 Unknown ORAL DIRECTED 1 unit(s) 7896604 RxNorm TAKE 1 EACH ORAL DIRECTED Assessment [...] System OTHER GENERAL SYMPTOMS AND SIGNS active 949851771 SNOMED-CT Allergies and Adverse Reactions Allergy Substance Reaction Severity Start Date Concern Status Co de Code System No Known Drug Allergies Active 646716666 SNOMED-CT Plan of Treatment No Data Found Encounters Encounter Diagnosis Start Date Code Code Sys tem care for patient w ith recurrent loss, first trimester 09/02/2023 SNOMED-CT Personal Care Team Section Performer Name Performer Role Active Date Inactive POLI Maria PCP - Primary care physician 2021-02-01
--- OUTSIDE RECORDS SUMMARY | 2024-05-08 04:56 | XMS_ITS ---
Author Organization Unknown Address [address] [place] [phone] Phone Care Team Providers Care Telecasting Engineer Name Role Phone CASH CARRION-BOBBY Attending Paul [...] HCG-QUANT - Collect Willy e/Time: 08/31/2023 13:03 [facility] ID: [id number] [address] [place], [place], [phone] LOINC: 58016-5 Test Value Unit Reference Range Code Code System Flag BETA HCG-QUANT 398.00 mIU/mL L=0.00 H=6.00 50548-2 LOINC H Social History Type Status Start Date End Date Code Code Syst em Smoking History Never smoker (Never Smoked) 688226907 SNOMED CT Sex Female Medications Medication Start Date End Date Route Frequency Dose Code Code System Medication Instructions Home Meds Dicyclomine HCl 10MG Oral Capsule 03/01/2021 Unknown ORAL THREE TIMES A DAY 10 MILLIGRAMS 981610 RxNorm TAKE 10 MILLIGRAMS ORAL THREE TIMES A DAY FLUoxetine HCl 20MG Oral Tablet 03/01/2021 Unknown ORAL ONCE A DAY 20 MILLIGRAMS 917925 RxNorm TAKE 20 MILLIGRAMS ORAL ONCE A DAY Adia 3MG-0.02MG Oral Tablet 03/01/2021 Unknown ORAL DIRECTED 1 unit(s) 6183481 RxNorm TAKE 1 EACH ORAL DIRECTED Assessment [...] System OTHER GENERAL SYMPTOMS AND SIGNS active 712610836 SNOMED-CT Allergies and Adverse Reactions Allergy Substance Reaction Severity Start Date Concern Status Co de Code System No Known Drug Allergies Active 647239783 EventfindaOMED-CT Plan of Treatment No Data Found Encounters Encounter Diagnosis Start Date Code Code Sys tem care for patient w ith recurrent loss, first trimester 08/31/2023 SNOMED-CT Personal Care Team Section Performer Name Performer Role Active Date Inactive POLI Maria PCP - Primary care physician 2021-02-01
--- OUTSIDE RECORDS SUMMARY | 2024-05-08 04:57 | XMS_ITS | Encounter Summary ---
Author Organization [facility] Address [address] [place] [address] Care Team Providers Care Instructional Manager Name Role Phone Unavailable Primary Care Provider Unavailabl e Reason for Referral * Eval and Treat (Routine) - Authorized Specialty Diagnoses / Procedures Referred By Gabe reed Referred To Contact Genetics Diagnoses Abnormal chromosomal and genetic finding on screening mother Daniela Marcial MD [address] [place] [address] [facility] Counsel[facility] [address] [facility] [address] [place] [address] Referral ID Status Reason Start Date Expiration Date Visits Requested Visits Authorized [id number] Authorized Performing Department to Schedule 11/19/2023 11/19/2024 1 1 Encounter Details Date Type Department Care Team (Late st Contact Info) Description 11/19/2023 Orders Only [facility] Maternal and Ground Floor [address] [place] [address] Daniela Marcial MD [address] [place] [address] Abnormal chromosomal and genetic finding [...]
--- OUTSIDE RECORDS SUMMARY | 2024-05-08 04:57 | XMS_ITS | Referral Summary ---
Author Organization [facility] Address [address] [place] [address] Care Team Providers Care Communications Tower Climber Name Role Phone No, Physician Primary Care Provider [phone] Allergies No known active allergies Medications sertraline (ZOLOFT) 100 mg tablet Take 1 tablet (100 mg total) by mouth daily Active vit 92-hgjw-obzjw-dh a 27mg iron- 800 mcg-250 mg capsule Take by mouth Active Active Problems Problem Noted Date Diagnosed Date Abnormal genetic test during Anxiety disorder affecting , antepartum 11/22/2023 Bipolar disease during pregn samia in second trimester ([facility]) 11/22/2023 Marijuana use during 11/22/2023 Supervision of high-risk , second trime ster 11/22/2023 Overview (11/22/2023): SEROLOGIES NEEDED requested 11/21 [] Co-management vs. [] Full [facility] Care; [] Red Team [] Blue Team Referring Provider: Daniela Marcial [phone] [] or Medicare Insurance [x] Dating Criteria: [...] [] MOC: [] Method of feeding: [] Financial Services Agent: [] PP Depression Discussed: Comments Yes Social [...] of Treatment Not on file Insurance [facility] Care Teams Communications Tower Climber Relationship Specialty Start Date End Date No, Physician PCP - General 11/22/23
--- OUTSIDE RECORDS SUMMARY | 2024-05-08 04:57 | XMS_ITS ---
Author Organization Unknown Address [address] [place] [phone] Phone Care Team Providers Care Corporate Law Specialist Name Role Phone CORKY SMALLS Attending Unavailable [...] RH TYPE - Collect Date/Time: 10/22/2023 08:30 [facility] ID: [id number] [address] [place] [address], [id number] LOINC: 23566-1 Test Value Unit Reference Range Code Code System Flag ABO TYPE A 883-9 LOINC RH TYPE POSITIVE BETA HCG-QUANT - Collect Willy e/Time: 10/22/2023 08:13 [facility] ID: [id number] [address] [place] [address], [id number] LOINC: 64895-3 Test Value Unit Reference Range Code Code System Flag BETA HCG-QUANT 59866.00 mIU/mL L=0.00 H=6.00 25283-3 LOINC H CBC W/ DIFF - Collect Date/T jasmine: 10/22/2023 08:13 [facility] ID: [id number] [address] [place] [address], [id number] LOINC: 16653-8 Test Value Unit Reference Range Code Code System Flag WBC 10.9 10^3uL L=4.8 H=10.8 H RBC 3.98 10^6uL L=4.20 H=5.40 L HEMOGLOBIN 12.2 g/dL L=12.0 H=16.0 718-7 LOINC HEMATOCRIT 34.9 VOL% L=37.0 H=47.0 4544-3 LOINC L MCV 87.7 fL L=81.0 H=99.0 MCH 30.7 pg L=27.0 H=32.0 MCHC 35.0 g/dL L=32.0 H=36.0 PLATELETS 209 10^3uL L=100 H=400 83093-3 LOINC RDW 12.6 % L=11.7 H=15.5 %GRAN 80.7 % L=40.0 H=70.0 18309-6 LOINC H %LYMPH 13.3 % L=20.0 H=45.0 736-9 LOINC L %MONO 5.0 % L=2.0 H=10.0 37327-9 LOINC %EOS 0.3 % L=0.0 H=6.0 713-8 LOINC %BASO 0.3 % L=0.0 H=3.0 706-2 LOINC #NEUT 8.8 10^3uL L=1.9 H=7.6 88662-7 LOINC H #LYMPH 1.5 10^3uL L=0.9 H=4.9 40667-3 LOINC #MONO 0.5 10^3uL L=0.1 H=0.9 16001-7 LOINC #EOS 0.0 10^3uL L=0.0 H=0.6 712-0 LOINC #BASO 0.03 10^3uL L=0.00 H=0.10 39775-9 LOINC #IM GRANS 0.0 10^3uL L=0.0 H=7.0 49416-6 LOINC %IM GRANS 0.4 % L=0.0 H=5.0 53048-3 LOINC %NRB 0.0 L=0.0 H=0.2 28424-8 LOINC #NRB 0.000 L=0.000 H=0.012 29789-3 LOINC MANUAL DIFF NOT INDICATED RBC MORPH NOT INDICATED COMPREHENSIVE METABOLIC PANE L - Collect Date/Time: 10/22/2023 08:13 [facility] ID: [id number] [address] [place], [place], [id number] LOINC: 82793-5 Test Value Unit Reference Range Code Code [...] 2028-9 LOINC ANION GAP 9 L=10 H=20 38545-3 LOINC L OSMOLALITY 278 mOs/kG L=280 H=296 92052-5 LOINC L BUN/CREAT 10.0 3097-3 LOINC CALCIUM 9.3 mg/dL L=8.3 H=10.5 16859-5 LOINC AST 22 U/L L=15 H=46 1920-8 LOINC ALT 16 U/L L=9 H=72 1742-6 LOINC ALKALINE PHOS 73 U/L L=38 H=126 6768-6 LOINC TOTAL BILI 0.4 mg/dL L=0.2 H=1.3 1975-2 LOINC ALBUMIN 3.9 G/dL L=3.5 H=5.0 1751-7 LOINC TOTAL PROTEIN 7.4 g/L L=6.3 H=8.2 2885-2 LOINC A/G RATIO 1.1 80778-8 LOINC AGE 18 60711-7 LOINC eGFR NON-AFR 113 ml/min eGFR AFR AMER 137 ml/min BB ABO AND RH TYPE - Collect Date/Time: 10/22/2023 08:13 [facility] ID: [id number] [address] [place], [place], [phone] LOINC: 49251-4 Test Value Unit Reference Range Code Code [...] Present Subchorionic bleed: No Placenta: Not identified Cass-rump length: 6.1 cm heart rate: 143 bpm [...] Vishnu Solomon M.D. KN: CLAIR Report ID: [id number] Reading Location: [id number] Social History Type Status Start Date End Date Code Code Syst em Smoking History Never smoker (Never Smoked) [id number] SNOMED CT Sex Female Medications Medication Start Date End Date Route Frequency Dose Code Code System Medication Instructions Home Meds Dicyclomine HCl 10MG Oral Capsule 03/01/2021 Unknown ORAL THREE TIMES A DAY 10 MILLIGRAMS 564590 RxNorm TAKE 10 MILLIGRAMS ORAL THREE TIMES A DAY FLUoxetine HCl 20MG Oral Tablet 03/01/2021 Unknown ORAL ONCE A DAY 20 MILLIGRAMS 847670 RxNorm TAKE 20 MILLIGRAMS ORAL ONCE A DAY Adia 3MG-0.02MG Oral Tablet 03/01/2021 Unknown ORAL DIRECTED 1 unit(s) 6204510 RxNorm TAKE 1 EACH ORAL DIRECTED Assessment [...] System OTHER GENERAL SYMPTOMS AND SIGNS active 952632845 SNOMED-CT Allergies and Adverse Reactions Allergy Substance Reaction Severity Start Date Concern Status Co de Code System No Known Drug Allergies Active 746528136 SNOMED-CT Plan of Treatment No Data Found Encounters Encounter Diagnosis Start Date Code Code Sys tem Spotting complicating , first trimester 10/21 SNOMED-CT Personal Care Team Section Performer Name Performer Role Active Date Inactive POLI Maria PCP - Primary care physician 2021-02-01 Imaging Narrative Notes
--- OUTSIDE RECORDS SUMMARY | 2024-05-08 04:57 | XMS_ITS | Encounter Summary ---
Author Organization [facility] Address [address] [place] [address] Phone Care Team Providers Care Plate Hanger Name Role Phone No, Physician Primary Care Provider [phone] Reason for Visit * Diagnostic Imaging (Routine) - Closed Specialty Diagnoses / Procedures Referred By Contac t Referred To Contact Diagnoses Supervision of high risk elderly multigravida in second trimester Procedures US Ob Detail Anatomy Single Or First Gestation Daniela Marcial MD [address] [address] Phone: tel: fax: [facility] (All Locations) Referral ID Status Reason Start Date Expiration Date Visits Re quested Visits Authorized [id number] Closed 11/23/2023 12/22/2024 1 1 Encounter Details Date Type Department Care Team (Latest Contact Info) Description 12/21/2023 9:45 AM CDT Ancillary Procedure [facility] Obstetrics and Gynecology [address] [place] [address] Supervision of high risk elderly multigravida [...] trimester documented in this encounter Care Teams Plate Hanger Relationship Specialty Start Date End Date No, Physician PCP - General 11/22/23 documented as of this encounter
--- OUTSIDE RECORDS SUMMARY | 2024-05-08 04:57 | XMS_ITS | Clinical Summary ---
Author Organization [facility] Address [address] [place] [address] Phone Care Team Providers Care Network Engineer Name Role Phone Unavailable Primary Care Provider [...]
--- OUTSIDE RECORDS SUMMARY | 2024-05-08 04:57 | XMS_ITS | Clinical Summary ---
Author Organization [facility] Address [address] [place] [address] Care Team Providers Care Recreation Professor Name Role Phone No, Physician Primary Care Provider [phone] Allergies No known active allergies Medications sertraline (ZOLOFT) 100 mg tablet Take 1 tablet (100 mg total) by mouth daily Active vit 33-pvvu-ccsxt-dh a 27mg iron- 800 mcg-250 mg capsule Take by mouth Active Active Problems Problem Noted Date Diagnosed Date Abnormal genetic test during Anxiety disorder affecting , antepartum 11/22/2023 Bipolar disease during pregn samia in second trimester ([facility]) 11/22/2023 Marijuana use during 11/22/2023 Supervision of high-risk , second trime ster 11/22/2023 Overview (11/22/2023): SEROLOGIES NEEDED requested 11/21 [] Co-management vs. [] Full [facility] Care; [] Red Team [] Blue Team Referring Provider: Daniela Marcial [phone] [] or Medicare Insurance [x] Dating Criteria: [...] [] MOC: [] Method of feeding: [] Coppersmith Apprentice: [] PP Depression Discussed: Comments Yes Surgical [...] No Intellectual disability or Fragile X: No Clinton disease: No Other defects or genetic disorders: [...] for a consult regarding: Recommendations: Abnormal NIPT: [facility] NIPT (collected 10/24/23, 11/06/23) - did not meet quality cloth tester metrics We reviewed both NIPT results. Patient had two NIPT screening tests from [facility], both of which had no result due to sample that did not meeting quality cloth tester metrics. Per [facility] report, this could be secondary to insufficient [...] be managed and there have not been senior care effects reported. We have scheduled her to return in 4 weeks for completion of anatomic survey. We will schedule this in our [place], [place] office per her request. Thank you for the opportunity to be involved in the care of your patient. Should you have any further questions or concerns, please do not hesitate to call us. Lurdes Gibson MD Maternal Medicine 11/23/2023 This was a telemedicine visit with Tanya Foilaugusta alone which took place via Real- time video connection (Rising, Zoom or similar).During the visit, I was located in the office and the patient was located in the [facility] in our remote office. My visit with [...] 08/08/2004 Meningococcal Vaccine Completed 11/26/2020, [address] [place] [id number] [facility] Care Teams Recreation Professor Relationship Specialty Start Date End Date No, Physician PCP - General 11/22/23
--- OUTSIDE RECORDS SUMMARY | 2024-05-08 04:57 | XMS_ITS | Encounter Summary ---
Author Organization [facility] Address [address] [place] [address] Phone Care Team Providers Care Certified Court Interpreter Name Role Phone No, Physician Primary Care Provider [phone] Encounter Details Date Type Department Care Team (Late st Contact Info) Description 11/22/2023 Telephone [facility] Obstetrics and Gynecology [address] [place] [address] Jenny Lugo Social History Tobacco Use Types [...] on filedocumented in this encounter Care Teams Certified Court Interpreter Relationship Specialty Start Date End Date No, Physician PCP - General 11/22/23 documented as of this encounter
--- OUTSIDE RECORDS SUMMARY | 2024-05-08 04:57 | XMS_ITS | Encounter Summary ---
Author Organization [facility] Address [address] [place] [address] Phone Care Team Providers Care Sole Filler Name Role Phone No, Physician Primary Care Provider [phone] Encounter Details Date Type Department Care Team (Late st Contact Info) Description 11/22/2023 Telephone [facility] Obstetrics and Gynecology [address] [place] [address] Jenny Lugo Social History Tobacco [...] on filedocumented in this encounter Care Teams Sole Filler Relationship Specialty Start Date End Date No, Physician PCP - General 11/22/23 documented as of this encounter
--- OUTSIDE RECORDS SUMMARY | 2024-05-08 04:57 | XMS_ITS | Encounter Summary ---
Author Organization [facility] Address [address] [place] [address] Care Team Providers Care Coating Mixer Name Role Phone Unavailable Primary Care Provider Unavailabl e Reason for Referral * Eval and Treat (Emergency) - Closed Specialty Diagnoses / Procedures Referred By Gabe t Referred To Contact Perinatology Diagnoses Abnormal chromosomal and genetic finding on screening mother Procedures MA OFFICE/OUTPATIENT ESTABLISHED MOD MDM 30 MIN MA OFFICE/OUTPATIENT NEW MODERATE MDM 45 MINUTES Daniela Marcial MD [address] [place] [address] [facility] Maternal And [facility] [place] [address] [facility] [place] [address] Referral ID Status Reason Start Date Expiration Date Visits Requested Visits Authorized [id number] Closed Performing Department to Schedule 11/19/2023 11/18/2024 1 1 Encounter Details Date Type Department Care Team (Late st Contact Info) Description 11/19/2023 Orders Only [facility] Maternal and Ground Floor [address] [place] [address] Daniela Marcial MD [address] [place] [address] Abnormal chromosomal and genetic finding [...]
--- OUTSIDE RECORDS SUMMARY | 2024-05-08 04:57 | XMS_ITS | Encounter Summary ---
Author Organization [facility] Address [address] [place] [address] Phone Care Team Providers Care Chargemaster Specialist Name Role Phone No, Physician Primary Care Provider [phone] Reason for Referral * Diagnostic Imaging (Routine) - Closed Specialty Diagnoses / Procedures Referred By Contac t Referred To Contact Diagnoses Supervision of high risk elderly multigravida in second trimester Procedures US Ob Detail Anatomy Single Or First Gestation Daniela Marcial MD [address] [place] [address] Phone: tel: fax: [facility] (All Locations) Referral ID Status Reason Start Date Expiration Date Visits Re quested Visits Authorized [id number] Closed 11/23/2023 12/22/2024 1 1 Reason for Visit * Consultation (Routine) - Closed Specialty Diagnoses / Procedures Referred By Conteliel t Referred To Contact Maternal and Medicine Diagnoses Supervision of high risk elderly multigravida in second trimester Daniela Marcial MD [address] [place] [address] Phone: tel: fax: [facility] (All Locations) Referral ID Status Reason Start Date Expiration Date V isits Requested Visits Authorized [id number] Closed Specialty Services Required 11/21/2023 12/20/2024 1 1 Encounter Details Date Type Department Care Team (Late st Contact Info) Description 11/23/2023 10:[address] [facility] Obstetrics and Gynecology [address] [facility] [address] [place] [address] Supervision of high-risk , second trimester (Primary [...] No Intellectual disability or Fragile X: No Franklin disease: No Other defects or genetic disorders: [...] for a consult regarding: Recommendations: Abnormal NIPT: [facility] [employer] NIPT (collected 10/24/23, 11/06/23) - did not meet quality assurance supervisor body metrics We reviewed both NIPT results. Patient had two NIPT screening tests from [facility], both of which had no result due to sample that did not meeting quality assurance supervisor body metrics. Per [facility] report, this could be secondary to insufficient [...] be managed and there have not been alf effects reported. We have scheduled her to return in 4 weeks for completion of anatomic survey. We will schedule this in our [place], [place] office per her request. Thank you for the opportunity to be involved in the care of your patient. Should you have any further questions or concerns, please do not hesitate to call us. Lrudes Gibson MD Maternal Medicine 11/23/2023 This was a telemedicine visit with Tanya Ying alone which took place via Real- time video connection ([employer], Zoom or similar).During the visit, I was located in the office and the patient was located in the [facility] in our remote office. My visit [...] reflect changes made after this encounter. vit 57-dfay-xsiix-dha 27mg iron- 800 mcg-250 mg capsule Take by mouth sertraline (ZOLOFT) 100 mg tablet Take 1 tablet (100 mg total) by mouth daily added in this encounter Orders Outpatient Referral Count Last Ordered Date Fir st Ordered Date AMB REFERRAL TO [facility] 1 11/23/2023 documented in this encounter Care Teams Chargemaster Specialist Relationship Specialty Start Date End Date No, Physician PCP - General 11/22/23 documented as of this encounter
--- OUTSIDE RECORDS SUMMARY | 2024-05-08 04:57 | XMS_ITS | Encounter Summary ---
Author Organization [facility] Address [address] [place] [address] Phone Care Team Providers Care Print Machine Operator Name Role Phone No, Physician Primary Care Provider [phone] Reason for Visit * Diagnostic Imaging (Routine) - Closed Specialty Diagnoses / Procedures Referred By Conteliel t Referred To Contact Diagnoses Encounter for anatomic survey Procedures US Ob Detail Anatomy Single Or First Gestation Daniela Marcial MD [address] [address] Phone: tel: fax: [facility] (All Locations) Referral ID Status Reason Start Date Expiration Date Visits Re quested Visits Authorized [id number] Closed 11/21/2023 12/20/2024 1 1 Encounter Details Date Type Department Care Team (Latest Contact Info) Description 11/23/2023 9:15 AM CDT Ancillary Procedure [facility] Obstetrics and Gynecology [address] [address] Encounter for anatomic survey Social [...] survey documented in this encounter Care Teams Print Machine Operator Relationship Specialty Start Date End Date No, Physician PCP - General 11/22/23 documented as of this encounter
--- OUTSIDE RECORDS SUMMARY | 2024-05-08 04:57 | XMS_ITS | Encounter Summary ---
Author Organization [facility] Address [address] [place] [address] Phone Care Team Providers Care Paper Rewinder Name Role Phone No, Physician Primary Care Provider [phone] Encounter Details Date Type Department Care Team (Late st Contact Info) Description 11/22/2023 Telephone [facility] Obstetrics and Gynecology [address] [address] Xuan Jacobson CMA Social History [...] on filedocumented in this encounter Care Teams Paper Rewinder Relationship Specialty Start Date End Date No, Physician PCP - General 11/22/23 documented as of this encounter
== END 2024-05-03 12:03 | disposition home or self-care (01) | DRG 807 ==
LOC: ANHLDR 19:01 → ANHOB2 05-02 17:26 → ANHLDR 05-07 07:38 → ANHOB2 05-07 07:38
PROVIDERS: Admitting Provider Obstetrics & Gynecology Gynecology; Visit Provider Obstetrics & Gynecology
DX: O77.0 Labor and delivery complicated by meconium in amniotic fluid (principal); Z37.0 Single live birth; O70.1 Second degree perineal laceration during delivery; O69.2XX0 Labor and delivery complicated by other cord entanglement, with compression, not applicable or unspecified; O71.82 Other specified trauma to perineum and vulva; Z3A.39 39 weeks gestation of pregnancy
CPT/HCPCS: 36415; 85014; 85018; 85025; 86592; 86703; 86850; 86900; 86901; 88307; A9270; G0432; J2405; J2590; J2795; J3010; J7120